=== PATIENT | female | born 2000 | race Caucasian/White ===

== ENCOUNTER 2021-05-24 19:10 | Emergency (ER) | payer OTHER ==
[~2021-05-24] VITALS: Ht 157.5 cm; Wt 49.0 kg
[2021-05-24] MEDS ORDERED: ONDANSETRON HCL INJ 2MG/ML 2ML 2 MG/ML VIAL IV NR (19:13)
[2021-05-24] MEDS ORDERED: SODIUM CHLORIDE 0.9% 1000ML 1,000 ML IV SCH (19:15)
[2021-05-24] MEDS ORDERED: ONDANSETRON HCL INJ 2MG/ML 2ML 2 MG/ML VIAL ONE (19:26)
[2021-05-24 19:27] LABS: BASOPHILS % 0.3 % (0.0-1.0); EOSINOPHILS # (AUTO) 0.2 (0.0-0.4); EOSINOPHILS % 3.1 % (0.0-6.0); HEMATOCRIT 46.3 % (34.2-44.1); HEMOGLOBIN 15.6 g/dL (12.0-16.0); LYMPHOCYTES # (AUTO) 1.7 (1.0-3.2); LYMPHOCYTES % 23.3 % (18.0-39.1); MEAN CORPUSCULAR HEMOGLOBIN 29.2 pg (28-32); MEAN CORPUSCULAR HGB CONC 33.7 g/dL (31-35); MEAN CORPUSCULAR VOLUME 86.7 fL (81-99); MONOCYTES # (AUTO) 0.6 (0.2-0.8); MONOCYTES % 7.8 % (4.4-11.3); NEUTROPHILS # (AUTO) 4.8 (2.1-6.9); NEUTROPHILS % 65.2 % (38.7-80.0); PLATELET COUNT 304 x10e3/uL (140-360); RED BLOOD COUNT 5.34 x10e6/uL (3.6-5.1); RED CELL DISTRIBUTION WIDTH 11.5 % (11.7-14.4)
[2021-05-24 19:36] LABS: CLARITY,URINE SL CLOUDY (CLEAR); COLOR,URINE YELLOW (YELLOW); KETONES,URINE NEGATIVE (NEGATIVE); LEUKOCYTE ESTERASE ,URINE SMALL (NEGATIVE); NITRITE,URINE NEGATIVE (NEGATIVE); PROTEIN,URINE DIPSTICK NEGATIVE (NEGATIVE); URINE UROBILINOGEN 0.2 mg/dL (0.2 - 1)
[2021-05-24 19:42] LABS: ALBUMIN 4.3 g/dL (3.5-5.0); ALBUMIN/GLOBULIN RATIO 1.4 (0.8-2.0); CREATININE, SERUM 0.9 mg/dL (0.57-1.11)
[2021-05-24 19:47] LABS: LIPASE 15 U/L (8-78)
[2021-05-24 19:49] LABS: BACTERIA,URINE MANY /HPF; EPITHELIAL CELLS,URINE MANY /LPF
[2021-05-24 19:53] LABS: HCG,QUANTITATIVE < 1.20 mIU/mL (0-10)
[2021-05-24] MEDS ORDERED: ONDANSETRON ODT4 MG PO (20:22)
[2021-05-24] MEDS ORDERED: CEPHALEXIN500 M1 PO (20:22)
== END 2021-05-24 20:51 | disposition home or self-care (01) ==
LOC: ER 19:29
DX: R11.2 Nausea with vomiting, unspecified (principal); N39.0 Urinary tract infection, site not specified
CPT/HCPCS: 36415; 80053; 81001; 83690; 84702; 85025; 99283; J2405; J7030

== ENCOUNTER 2021-05-31 12:02 | Emergency (ER) | payer OTHER ==
[~2021-05-31] VITALS: Ht 157.5 cm; Wt 49.0 kg
[~2021-05-31 12:02] MED LIST: CEPHALEXIN500 M1 PO; ONDANSETRON ODT4 MG PO
[2021-05-31] MEDS ORDERED: ONDANSETRON HCL 4 MG ORAL DISINTEGRATING TAB PO NR (12:30)
[2021-05-31 12:53] LABS: CLARITY,URINE CLEAR (CLEAR); COLOR,URINE YELLOW (YELLOW); EPITHELIAL CELLS,URINE FEW /LPF; KETONES,URINE NEGATIVE (NEGATIVE); LEUKOCYTE ESTERASE ,URINE NEGATIVE (NEGATIVE); NITRITE,URINE NEGATIVE (NEGATIVE); PROTEIN,URINE DIPSTICK NEGATIVE (NEGATIVE); URINE UROBILINOGEN 0.2 mg/dL (0.2 - 1); WBC,URINE (MAN) 0-5 /HPF (0-5)
[2021-05-31 12:54] LABS: BACTERIA,URINE RARE /HPF; MUCUS,URINE FEW (RARE)
[2021-05-31] MEDS ORDERED: PHENAZOPYRIDINE HCL 100 MG TAB PO NR (13:15)
[2021-05-31] MEDS ORDERED: PHENAZOPYRIDINE HCL 100 MG TAB ONE (13:50)
== END 2021-05-31 15:13 | disposition home or self-care (01) ==
LOC: ER 12:50
DX: R31.9 Hematuria, unspecified (principal); R30.0 Dysuria; M54.50 Low back pain, unspecified; R11.2 Nausea with vomiting, unspecified
CPT/HCPCS: 74176; 81001; 81025; 99283; Q0162

== ENCOUNTER 2022-02-16 17:40 | Emergency (ER) | payer OTHER ==
[~2022-02-16] VITALS: Ht 157.5 cm; Wt 49.0 kg
[2022-02-16 18:25] LABS: CLARITY,URINE CLEAR (CLEAR); COLOR,URINE YELLOW (YELLOW); KETONES,URINE NEGATIVE (NEGATIVE); LEUKOCYTE ESTERASE ,URINE NEGATIVE (NEGATIVE); NITRITE,URINE NEGATIVE (NEGATIVE); PROTEIN,URINE DIPSTICK 1+ (NEGATIVE); URINE UROBILINOGEN 0.2 mg/dL (0.2 - 1)
[2022-02-16 18:37] LABS: BACTERIA,URINE MODERATE /HPF; EPITHELIAL CELLS,URINE MODERATE /LPF
[2022-02-16] MEDS ORDERED: PYRIDIUM100 MG PO (19:34)
== END 2022-02-16 19:38 | disposition home or self-care (01) ==
LOC: ER 17:52
DX: R30.0 Dysuria (principal); N30.10 Interstitial cystitis (chronic) without hematuria; R10.30 Lower abdominal pain, unspecified; F17.210 Nicotine dependence, cigarettes, uncomplicated
CPT/HCPCS: 81001; 81025; 87086; 99282